=== PATIENT | male | born 1970 | race Caucasian/White ===

== ENCOUNTER 2021-06-01 14:36 | Emergency (ER) | payer OTHER ==
[~2021-06-01] VITALS: Ht 175.3 cm; Wt 81.7 kg
[~2021-06-01 14:36] MED LIST: ADVIL100 M2 PO; IBUPROFEN 600600 M1 PO; MECLIZINE HCL25 M1 PO; PERCOCET 5-3251 EACH PO; VALIUM5 MG PO; VICODIN 5-3001 EACH PO
[2021-06-01 17:31] LABS: ABSOLUTE BASOPHILS 0.1 thou/uL (0.0-0.2); ABSOLUTE EOSINOPHILS 0.1 thou/uL (0.0-0.7); ABSOLUTE LYMPHOCYTES 1.8 thou/uL (0.8-5.3); ABSOLUTE MONOCYTES 0.7 thou/uL (0.0-1.2); ABSOLUTE NEUTROPHILS 4.3 thou/uL (1.6-8.1); BASOPHILS 0.9 %; EOSINOPHILS 1.6 %; HEMATOCRIT 40.8 % (42.0-52.0); HEMOGLOBIN 13.7 gm/dL (14.0-18.0); LYMPHOCYTES 25.9 %; MCH 30.2 pg (26.0-34.0); MCHC 33.5 g/dL (28.0-37.0); MCV 89.9 fL (80.0-100.0); MONOCYTES 10.1 %; MPV 6.7 fl. (7.2-11.1); NUCLEATED RBCS 0 /100WBC; PLATELET COUNT* 319 thou/uL (150-400); POLYS 61.5 %; RBC 4.54 mil/uL (4.50-6.00); RDW-CV 13.9 % (10.5-14.5); WBC 7.1 thou/uL (4.0-11.0)
[2021-06-01 17:39] LABS: CALCIUM 8.1 mg/dL (8.5-10.1); CREATININE 1.1 mg/dL (0.6-1.3); POTASSIUM 3.4 mmol/L (3.5-5.1)
[2021-06-01 17:46] LABS: ALBUMIN 3.5 g/dL (3.4-5.0); TOTAL BILIRUBIN 0.3 mg/dL (<0.1-1.0); TOTAL PROTEIN 6.9 g/dL (6.4-8.2)
[2021-06-01] MEDS ORDERED: BACTRIM DS TAB1 EACH PO (18:27)
[2021-06-01] MEDS ORDERED: IBUPROFEN 800800 M1 PO (18:27)
[2021-06-01] MEDS ORDERED: CEPHALEXIN500 MG PO (18:27)
[2021-06-01 18:35] LABS: ESR (SEDRATE) 35 mm/hr (0-15)
[2021-06-01 18:46] VITALS: BP 130/70
== END 2021-06-01 18:47 | disposition admitted as inpatient to this hospital (09) ==
LOC: M.ERS 14:36
PROVIDERS: Nurse Practitioner Family
DX: L03.116 Cellulitis of left lower limb (principal); Z88.1 Allergy status to other antibiotic agents